=== PATIENT | female | born 1985 | race Caucasian/White ===

== ENCOUNTER → 2018-06-20 07:56 | Outpatient (CLI) | payer OTHER, SELFPAY ==
[2018-06-20 10:40] LABS: HCG Quantitative /Beta subunit 3886.8 mIU/mL
== END ==
PROVIDERS: PCP Obstetrics & Gynecology; Visit Provider Obstetrics & Gynecology
DX: N96 Recurrent pregnancy loss (principal); Z32.01 Encounter for pregnancy test, result positive
CPT/HCPCS: 36415; 84702

== ENCOUNTER → 2018-06-22 08:30 | Outpatient (CLI) | payer OTHER, SELFPAY ==
[2018-06-22 09:59] LABS: HCG Quantitative /Beta subunit 8791.9 mIU/mL
== END ==
PROVIDERS: PCP Obstetrics & Gynecology; Visit Provider Obstetrics & Gynecology
DX: N91.2 Amenorrhea, unspecified (principal); N96 Recurrent pregnancy loss
CPT/HCPCS: 36415; 84702

== ENCOUNTER → 2018-07-27 09:25 | Outpatient (CLI) | payer OTHER, SELFPAY ==
[2018-07-27 11:04] LABS: Add Manual Diff / Slide Review NO; Basophils Absolute Auto 0 /uL (0-100); Basophils Percent Auto 0.3 % (0-2); Eosinophils Absolute Auto 100 /uL (0-450); Eosinophils Percent Auto 1.1 % (2-4); Hematocrit 41.2 % (36-46); Hemoglobin 13.5 g/dL (12.0-16.0); Lymphocytes Absolute Auto 1800 /uL (1100-4500); Lymphocytes Percent Auto 20.2 % (25-40); Mean Corpuscular HGB Conc 32.8 % (30-36); Mean Corpuscular Hemoglobin 29.8 PG (26-34); Mean Corpuscular Volume 90.9 fL (80-100); Monocytes Absolute Auto 500 /uL (0-900); Monocytes Percent Auto 5.9 % (3-14); Neutrophils Absolute Auto 6400 /uL (1500-7000); Neutrophils Percent Auto 72.5 % (50-75); Platelet Count 229 X10^3/uL (150-400); Red Blood Cell Count 4.54 X10^6/uL (4.0-5.2); Red Cell Distribution Width 13.1 % (11.6-14.8); White Blood Cell Count 8.8 X10^3/uL (4.5-11.0)
[2018-07-27 11:09] LABS: Appearance Urine UA CLEAR; Bilirubin Urine UA NEGATIVE (NEGATIVE); Color Urine UA YELLOW; Glucose Urine UA NEGATIVE (Negative); Ketones Urine UA NEGATIVE (NEGATIVE); Leukocyte Esterase Urine UA NEGATIVE (NEGATIVE); Nitrite Urine UA NEGATIVE (Negative); Occult Blood Urine UA NEGATIVE (Negative); Protein Urine UA NEGATIVE (Negative); Specific Gravity Urine UA <=1.005 (1.000-1.035); Urobilinogen Urine UA 0.2 E.U./dL (0.2)
[2018-07-27 11:53] LABS: Hepatitis B Surface Antigen NEGATIVE s/c (NEGATIVE); Rubella Antibody IgG 29.8 IU/mL (>15)
[2018-07-27 12:10] LABS: HIV 1 and 2 Antibody NEGATIVE (NEGATIVE); Hep C Virus Ab w/Reflex Quant NEGATIVE s/c (NEGATIVE)
[2018-07-30 14:13] LABS: RPR Screen Nonreactive (Nonreactive)
[2018-08-03 14:16] LABS: Informaseq SEE SEPARATE REPORTS
== END ==
PROVIDERS: Visit Provider Obstetrics & Gynecology
DX: O09.529 Supervision of elderly multigravida, unspecified trimester (principal); N96 Recurrent pregnancy loss; Z3A.10 10 weeks gestation of pregnancy
CPT/HCPCS: 36415; 80055; 81003; 81507; 86703; 86787; 86803; 86850; 86900; 86901; 87086

== ENCOUNTER → 2018-10-10 08:49 | Outpatient (CLI) | payer OTHER, SELFPAY ==
--- NOTE | 2018-10-10 08:50 | DI.US.S_ITS ---
PROCEDURE: US OB >= 14 WEEKS FETUS INDICATIONS: ANATOMY SCAN OUTSIDE/PRIOR DATING DATA: Last menstrual period (LMP): 05/17/18. LMP-based estimated date of delivery (ERLINDA): 02/21/19. First dating scan (date and location): 07/18/18. Estimated date of delivery (ERLINDA) from first dating scan: 02/22/19. TECHNIQUE: Real-time scanning was performed of the fetus, with image documentation and biometric measurements. Endovaginal scanning: No COMPARISON: [facility], , OB >= 14 WEEKS FETUS, 08/22/2018, 15:38. FINDINGS: General: A single living intrauterine gestation is present. Presentation: Vertex. Placenta: Placental position is posterior, with marginal placenta previa with the inferior edge of the placenta nearly at the level of the internal cervical os. Amniotic fluid index: 16.6 cm, normal range is 5-24 cm. heart rate: 145 beats per minute. Maternal cervical canal: 4.1 cm long. Normal lower limit is 2.5 cm. biometrics: Biparietal diameter: 21 weeks 1 day Head circumference: 21 weeks 2 days Abdominal circumference: 21 weeks 4 days Femur length: 21 weeks 2 days Estimated gestational age from initial scan: 20 weeks 5 days Composite gestational age from present scan: 21 weeks 2 days Estimated weight and percentile: 422 g; 82nd percentile Measurement variability for biometric dating: +/- 7 days from 14 weeks to 15 weeks 6 days gestation, +/- 10 days from 16 weeks to 21 weeks 6 days gestation, +/- 2 weeks from 22 weeks to 27 weeks 6 days gestation, +/- 3 weeks for 28 weeks gestation or later. weight reference: 4500 g or EFW >90/95% is considered macrosomia or large for gestational age. EFW <10% is small for gestational age. EFW 5% or less is considered intra-uterine growth restriction. Anatomic survey: Neuro: Ventricles are non-dilated at less than 10 mm. Cisterna magna is normal at 3-11 mm. Cerebellum is normal in size and morphology. Nuchal skin fold: Normal at less than 6 mm between 14-21 weeks gestational age. Face: Nose and lips, facial profile are normal. Spine: No evidence for spina bifida. Heart: 4-chambered heart is present, with normal ventricular outflow tracts. Diaphragm: Diaphragm is intact. Stomach: Left-sided stomach is present. Kidneys: No hydronephrosis. Normal is less than 5 mm in 2nd trimester, less than 7 mm in 3rd trimester. Cord: 3-vessel cord has orthotopic insertion. Bladder: Normal in size. Extremities: All 4 extremities identified. IMPRESSION: 1. Single living IUP redemonstrated and interval growth is normal. 2. Normal anatomic survey. 3. Marginal placenta previa. Short term followup ultrasound recommended. Dictated by: Torin XIONG Interpreted: Lisa Reeves MD on 10/10/2018 at 12:57 Approved by: Lisa Reeves M.D. on 10/10/2018 at 16:12
== END ==
PROVIDERS: Visit Provider Obstetrics & Gynecology
DX: O44.22 Partial placenta previa NOS or without hemorrhage, second trimester (principal); Z3A.21 21 weeks gestation of pregnancy; Z36.89 Encounter for other specified antenatal screening
CPT/HCPCS: 76811

== ENCOUNTER → 2018-11-29 07:04 | Outpatient (CLI) | payer OTHER, SELFPAY ==
[2018-11-29 08:38] LABS: Hematocrit 32.7 % (36-46); Hemoglobin 11.1 g/dL (12.0-16.0)
[2018-11-29 09:38] LABS: GTT (PREG) 1 Hour PP 50gm Dose 153 mg/dL (76-139)
== END ==
PROVIDERS: PCP Family Medicine; Visit Provider Obstetrics & Gynecology
DX: Z34.82 Encounter for supervision of other normal pregnancy, second trimester (principal); Z3A.27 27 weeks gestation of pregnancy
CPT/HCPCS: 36415; 82950; 85014; 85018

== ENCOUNTER → 2018-11-30 07:04 | Outpatient (CLI) | payer OTHER, SELFPAY ==
[2018-11-30 09:15] LABS: Glucose 1 Hour Gest 153 mg/dL (76-180)
[2018-11-30 09:24] LABS: Glucose Fasting Gestational 77 mg/dL (76-95)
[2018-11-30 10:29] LABS: Glucose Tol Interp,Gestational INTERPRETATION
[2018-11-30 10:34] LABS: Glucose 2 Hour Gest 156 mg/dL (76-155)
[2018-11-30 11:21] LABS: Glucose 3 Hour Gest 96 mg/dL (76-140)
== END ==
PROVIDERS: PCP Family Medicine; Visit Provider Obstetrics & Gynecology
DX: O99.810 Abnormal glucose complicating pregnancy (principal); Z34.82 Encounter for supervision of other normal pregnancy, second trimester; Z3A.27 27 weeks gestation of pregnancy
CPT/HCPCS: 36415; 82951; 82952

== ENCOUNTER 2018-12-16 18:20 | Outpatient (CLI) | payer OTHER, SELFPAY | END 2018-12-16 19:50 | disposition home or self-care (01) | LOC: LABOR 18:38 → OB 12-18 15:03 | PROVIDERS: PCP Family Medicine; Visit Provider Obstetrics & Gynecology | DX: O24.415 Gestational diabetes mellitus in pregnancy, controlled by oral hypoglycemic drugs (principal); O60.03 Preterm labor without delivery, third trimester; O26.23 Pregnancy care for patient with recurrent pregnancy loss, third trimester; O09.523 Supervision of elderly multigravida, third trimester; Z3A.30 30 weeks gestation of pregnancy | CPT/HCPCS: 59025; G0378; G0379 ==

== ENCOUNTER 2019-01-18 14:36 | Outpatient (CLI) | payer OTHER, SELFPAY ==
[2019-01-18 15:30] VITALS: BP 112/75
== END 2019-01-18 15:20 | disposition home or self-care (01) ==
LOC: OB 01-19 10:32
PROVIDERS: PCP Family Medicine; Visit Provider Obstetrics & Gynecology
DX: O09.523 Supervision of elderly multigravida, third trimester (principal); O26.23 Pregnancy care for patient with recurrent pregnancy loss, third trimester; Z3A.35 35 weeks gestation of pregnancy; O26.893 Other specified pregnancy related conditions, third trimester; N89.8 Other specified noninflammatory disorders of vagina
CPT/HCPCS: 59025; 84112; G0378; G0379

== ENCOUNTER → 2019-01-23 15:47 | Outpatient (CLI) | payer OTHER, SELFPAY ==
[2019-01-24 12:41] LABS: Strep Grp B PCR NEG for Grp B Strep
== END ==
PROVIDERS: PCP Family Medicine; Visit Provider Obstetrics & Gynecology
DX: Z34.83 Encounter for supervision of other normal pregnancy, third trimester (principal); Z36.85 Encounter for antenatal screening for Streptococcus B; Z3A.35 35 weeks gestation of pregnancy
CPT/HCPCS: 87653

== ENCOUNTER 2019-02-04 21:00 | Outpatient (CLI) | payer OTHER, SELFPAY | END 2019-02-04 21:37 | disposition home or self-care (01) | LOC: OB 02-06 12:10 | PROVIDERS: PCP Family Medicine; Visit Provider Obstetrics & Gynecology | DX: O36.8190 Decreased fetal movements, unspecified trimester, not applicable or unspecified (principal); O09.523 Supervision of elderly multigravida, third trimester; O26.23 Pregnancy care for patient with recurrent pregnancy loss, third trimester; Z3A.37 37 weeks gestation of pregnancy | CPT/HCPCS: 59025; G0378; G0379 ==

== ENCOUNTER 2019-02-09 08:49 | Outpatient (CLI) | payer OTHER, SELFPAY ==
--- NOTE | 2019-02-09 10:27 | P.TNLD_ITS ---
Visit Information Visit Information Date of evaluation: 02/09/19 Primary OB Provider: Yulisa Bella On-call OB Provider: Jessica Valdez Reason for Evaluation: Yes rule out labor Comments/Additional reasons for admission: This patient is a 33-year-old at 38+1 presenting for evaluation for labor. Patient has history of prior section, and reported painful cramping overnight that has since resolved into occasional back tightening. Patient denies vaginal bleeding, abdominal pain, loss of fluid, decreased movement, or any other concerns or complaints. Patient is status post Lovenox for MTHFR, but has no other complications. Patient vocalized strong desire to wait until scheduled section unless absolutely necessary. 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 Brother No problems noted. Sister No problems noted. Grandfather Cancer Grandfather No problems noted. Grandmother Diabetes mellitus Social History marital status: number of children: 1 household members: spouse Smoking Status: Never smoker alcohol intake: current substance use type: does not use Review of Systems Constitutional Constitutional: Reports system reviewed and no additional complaints, except as documented Cardiovascular Cardiovascular: Reports system reviewed; no additional complaints, except as documented Respiratory Respiratory: Reports system reviewed and no additional complaints, except as documented Gastrointestinal Gastrointestinal: Reports system reviewed and no additional complaints, except as documented Genitourinary Genitourinary: Reports system reviewed and no additional complaints, except as documented Neurologic Neurologic: Reports system reviewed and no additional complaints, except as documented Exam Vital Signs (past 8 hours): 114/56, 105 Evaluation Evaluation Baseline heart rate: 135 Variability: Average (6-10) monitor accelerations: Present monitor decelerations: Absent Contraction Frequency (minutes): 3 Cervical dilation (cm): 0 Cervical effacement (%): 0 station: -4 Diagnosis, Plan/Disposition Plan/Disposition Plan: This patient is having contractions, but reports that they are now asymptomatic. status is otherwise reassuring, and the patient emphatically desires to be discharged home to postpone her section to her scheduled date if at all possible. We discussed antepartum precautions and the importance of returning with regular symptomatic contractions, and the patient vocalized understanding. OB Disposition: home
== END 2019-02-09 10:37 | disposition home or self-care (01) ==
LOC: LABOR 10:07 → OB 11:53
PROVIDERS: PCP Family Medicine; Visit Provider Obstetrics & Gynecology
DX: O99.283 Endocrine, nutritional and metabolic diseases complicating pregnancy, third trimester (principal); Z3A.38 38 weeks gestation of pregnancy
CPT/HCPCS: 59025; G0378; G0379

== ENCOUNTER 2019-02-15 05:48 | Inpatient (IN) | payer OTHER, SELFPAY ==
[2019-02-15] VITALS (8 sets, daily range): BP systolic 89–112; BP diastolic 44–68; PULSE 94–119; RESP 10–17; TEMP 36.1–36.3; O2SAT 99–110
[2019-02-15] MEDS: LACTATED RINGERS 1,000 ML 42 ML IV ×3 (06:00→08:36)
[2019-02-15 07:14] LABS: Add Manual Diff / Slide Review NO; Basophils Absolute Auto 0 /uL (0-100); Basophils Percent Auto 0.3 % (0-2); Eosinophils Absolute Auto 100 /uL (0-450); Hematocrit 37.7 % (36-46); Hemoglobin 12.8 g/dL (12.0-16.0); Lymphocytes Absolute Auto 2200 /uL (1100-4500); Lymphocytes Percent Auto 19.7 % (25-40); Mean Corpuscular HGB Conc 33.8 % (30-36); Mean Corpuscular Hemoglobin 31.1 PG (26-34); Monocytes Absolute Auto 1000 /uL (0-900); Neutrophils Absolute Auto 7700 /uL (1500-7000); Platelet Count 150 X10^3/uL (150-400); Red Cell Distribution Width 15.2 % (11.6-14.8)
--- NOTE | 2019-02-15 07:31 | SUR.OPER ---
Supine on Padded OR bed, head on pillow, safety belt at thigh, arms secured on padded arm boards at <90 degrees abduction. Bump under right buttock. Legs uncrossed with pillow under knees, gel pad to heels, tape over blanket to lower legs.
--- NOTE | 2019-02-15 07:41 | PM.PREOP ---
Pre-operative Note Interval Note History & Physical reviewed/Exam performed by Physician: Yes Changes to H&P: No
[2019-02-15] MEDS: CEFAZOLIN 2 GM/100 ML FROZ.PIGGY IV (07:43)
--- NOTE | 2019-02-15 08:26 | SUR.OPER ---
viable baby boy emerged from placenta at 0826
[2019-02-15] MEDS: ACETAMINOPHEN IV 1,000 MG/100 ML VIAL 400 MG IV (08:35)
--- NOTE | 2019-02-15 08:36 | SUR.OPER ---
placenta and cord blood sent with ob rn
[2019-02-15] MEDS: BUPIVACAINE 0.5% W/ EPI (PF) 30 ML VIAL INJ (08:46)
--- NOTE | 2019-02-15 09:16 | PM.GYNOP.1 ---
Operative Date/Time/Diagnoses Date of procedure: 02/15/19 Time of procedure: 09:16 Pre-op diagnosis: Previous section Thirty-nine weeks gestation MTHFR Post-op diagnosis: same Procedure & Clinicians Procedure: Procedures Operation Date: 02/15/19 07:45 Actual Procedures Side Surgeon p Repeat Section Yulisa Bella MD Indications: Thirty-nine weeks gestation Previous section MTHFR Surgeon: Yulisa Bella Vice President Investor Relations: Bernadette Mahoney Anesthesia Type: Spinal (With Duramorph) Operative Notes Findings: A live male infant in the left occiput anterior presentation Very thin lower uterine segment Normal tubes and ovaries Closure Type: primary Specimen(s): other (Cord bloods, placenta) Applied: catheter Estimated blood loss (mL): 400 Blood products transfused: none Procedure in detail: The patient was taken to the operating room where she was placed in the seated position. Spinal anesthesia with Duramorph was administered. The patient was then placed in the dorsal supine position with a leftward tilt. She was prepped and draped in the usual sterile fashion. A timeout was performed. After spinal analgesia was found to be adequate, the previous incision was excised in an elliptical fashion, and carried down to the underlying layer of fascia. The fascia was nicked in the midline, and the incision extended bilaterally with the Foster scissors. The superior aspect of the fascial incision was grasped with a [place] clamps, elevated, and the underlying rectus muscles dissected off sharply and bluntly. Attention was then turned to the inferior aspect of this incision which in a similar fashion was grasped with a Dottie clamps, elevated, and the underlying rectus muscles dissected off sharply and bluntly. The rectus muscles were in the midline. The peritoneum was identified, grasped between 2 hemostats, and entered sharply with the Metzenbaum scissors. This incision was extended superiorly and inferiorly with good visualization of the bladder. The bladder blade was inserted. The lower uterine segment was found to be very thin. The vesicouterine peritoneum was identified, grasped with the pickup, and entered sharply with the Metzenbaum scissors. This incision was extended bilaterally, and the bladder flap was created digitally. The bladder blade was reinserted. The lower uterine segment was incised in a transverse fashion with the scalpel. Upon entering the amniotic sac there was moderate amount of clear amniotic fluid. The 's head was delivered with vacuum assistance. The nose and mouth were suctioned with bulb suction. The remainder of the body delivered without difficulty. The cord was double clamped and cut. The infant was handed off to waiting RN and RT. The placenta was delivered manually. The uterus was cleared of all clots and debris. The uterine incision was repaired with #1 chromic in a running interlocking fashion, and a second layer the same suture was used for an imbricating layer. Hemostasis was achieved. The tubes and ovaries were examined and were found to be normal. The gutters were cleared of all clots and debris. The parietal peritoneum was closed using 2-0 Vicryl in a running fashion. The fascia was reapproximated using 0 Vicryl in a running fashion. The subcutaneous layer was copiously irrigated with warm normal saline. 5 simple interrupted sutures of 3-0 Vicryl were placed to reapproximate the subcutaneous layer. The skin was closed with 4-0 Biosyn in a subcuticular fashion. Steri-Strips were placed. An Aquacell dressing was placed. The uterus was expressed of a small amount of old blood. Sponge, lap, and instrument counts were correct x-2. The patient tolerated the procedure well, and was taken to PACU in stable condition. Complications: none Post-operative Condition: stable Disposition: PACU Plan for aftercare: To the center after recovery
--- NOTE | 2019-02-15 09:55 | SUR.PHASEI ---
Patient taken to room in stable condition. Alert and awake. Family at bedside. Reported off to receiving RN Derrick. No change in condtion.
[2019-02-15] MEDS: ONDANSETRON 4 MG/2 ML INJ IV ×2 (13:31→19:36)
[2019-02-15] MEDS: KETOROLAC 30 MG/ML VIAL IV ×2 (15:05→21:08)
[2019-02-15] MEDS: diphenhydrAMINE 50 MG/ML VIAL 25 MG IV (19:50)
[2019-02-16] MEDS: KETOROLAC 30 MG/ML VIAL IV (03:06)
[2019-02-16 06:40] LABS: Hematocrit 34.7 % (36-46); Hemoglobin 11.6 g/dL (12.0-16.0)
[2019-02-16] MEDS: DOCUSATE 250 MG CAPSULE PO (08:48)
[2019-02-16] MEDS: IBUPROFEN 600 MG TABLET PO ×3 (08:48→21:58)
[2019-02-16] MEDS: LANOLIN OINT 7 GM 1 APPLIC TOP (08:49)
[2019-02-16] MEDS: PRENATAL VIT,CALC/IRON/FOLIC 1 TABLET 1 TAB PO (08:49)
[2019-02-16] MEDS: ACETAMINOPHEN 325 MG TABLET 650 MG PO ×2 (11:54→19:12)
[2019-02-16 15:00] VITALS: BP 131/79; PULSE 100; RESP 16; TEMP 36.7
[2019-02-16] MEDS: HYDROCODONE/ACET 5/325 TABLET 1 TAB PO (23:24)
[2019-02-16] MEDS: MAG HYDROX/ALUM/SIMETH 30 ML UDC PO (23:46)
[2019-02-17] MEDS: ACETAMINOPHEN 325 MG TABLET 650 MG PO ×2 (04:07→09:54)
[2019-02-17] MEDS: IBUPROFEN 600 MG TABLET PO (06:22)
[2019-02-17] MEDS: MAG HYDROX/ALUM/SIMETH 30 ML UDC PO (06:22)
--- NOTE | 2019-03-06 15:32 | PM.OBPN.1 ---
Subjective - OB Subjective Patient comments: no complaints, pain well controlled and tolerating diet baby status: doing well and nursing well feeding status: exclusively breast feeding Date Patient Seen: 02/16/19 Time Patient Seen: 08:30 Exam Vital Signs (past 8 hours): Oxygen Delivery Method Room Air Narrative Exam Narrative: Generally: Patient is sitting up in bed, holding , no acute distress Lungs: Clear to auscultation bilaterally Cardiovascular: Regular rate and rhythm Abdomen: Soft and flat. Good bowel sounds Fundus: Firm at U -1 Extremities: Negative Homans, no edema Objective Labs Result Diagrams: 02/16/19 06:20 Assessment & Plan Plan day: 1 plan OB: routine postop care Time Spent With Patient Time: Total time spent is greater than 50% in coordination of care (as documented) at patient's floor/unit and/or counseling patient: Time with patient: 15-24 minutes
--- NOTE | 2019-03-06 15:33 | PM.OBDS.1 ---
Discharge Providers Provider Date of admission: 02/15/19 05:48 Discharge Date: 02/17/19 Primary care physician: Bernadette Mahoney DO Consults: 02/15/19 09:05 Consult to Recreation Facility Attendant Routine Comment: Discharge provider: Yulisa Bella MD Summary Hospital Course Date Patient Seen: 02/17/19 Time Patient Seen: 11:00 Procedures: Spinal anesthesia Repeat low-transverse section Hospital Course: Patient is a 33-year-old who presented on February 15, 2019 for scheduled repeat low-transverse section. She underwent this without complication. Her postoperative course was unremarkable. She was discharged home on postop day # 2. Peripartum Data Infant Delivery Method: Section Laceration description: None Episiotomy description: None Procedures: Spinal anesthesia Repeat low-transverse section complications: none Status at Discharge Cognitive/behavioral status at discharge: oriented Functional status at discharge: independent ambulation Overall status at discharge: patient is progressing back to baseline Time Spent with Patient Time attestation: Total time spent providing and/or coordinating discharge services: Time spent: Less than 30 minutes Objective Labs Result Diagrams: 02/16/19 06:20 Exam Vital Signs (past 8 hours): Oxygen Delivery Method Room Air Narrative Exam Narrative: Generally: Patient walking around in room, no acute distress Lungs: Clear to auscultation bilaterally Cardiovascular: Regular rate and rhythm Fundus: Firm at U -2 Incision: Clean dry and intact with Aquacel dressing Extremities: Trace edema, negative Homans Discharge Plan Discharge Plan Patient Disposition: Home Discharge comment: Call with fever, chills, redness or drainage around incision or bleeding vaginally more than a pad in an hour Discharge orders & Medications Prescriptions: Continued fenugreek PO RF: 0 docusate sodium 50 mg capsule 50 mg PO DAILY RF: 0 Discontinued sertraline [Zoloft] 50 mg tablet 50 mg PO QDAY Qty: 30 RF: 6 metoclopramide HCl [Reglan] 10 mg tablet 10 mg PO TID Qty: 90 RF: 1 progesterone micronized 100 mg capsule 100 mg PO DAILY Qty: 10 RF: 0 folic acid 1 mg tablet 4 mg PO DAILY Qty: 120 RF: 3 metformin [Glucophage] 500 mg tablet 500 mg PO QDAY Qty: 90 RF: 3 enoxaparin [Lovenox] 40 mg/0.4 mL syringe 40 mg SUBCUT DAILY Qty: 12 RF: 6 Follow up/Referrals: Yulisa Bella MD [Physician] - 1 Week (Please make an appointment on Tuesday for 1 week,incision check) Bernadette Mahoney DO [Primary Care Provider] - Diet/Activity/Treatments Diet: Regular Skin/Wound/Dressing Care Report to your healthcare provider any signs of infection, such as:: chills, fever, increased pain, unusual drainage and unusual redness Dressing: Do not remove Visit Report/Discharge Packet Instructions: DI for Discharge Data Primary Care Provider: Bernadette Mahoney Discharges patient from system. Discharge Date/Time: 02/17/19 11:20
== END 2019-02-17 11:20 | disposition home or self-care (01) | DRG 788 ==
LOC: AC 05:57 → LABOR 06:10
PROVIDERS: Admitting Provider Obstetrics & Gynecology; PCP Family Medicine; Visit Provider Obstetrics & Gynecology
PROC: 10D00Z1 Extraction of Products of Conception, Low, Open Approach (ICD-10-PCS; CPT 59514; principal; 2019-02-15 07:45)
DX: O34.211 Maternal care for low transverse scar from previous cesarean delivery (principal); Z3A.39 39 weeks gestation of pregnancy; Z37.0 Single live birth
CPT/HCPCS: 36415; 59050; 59510; 59514; 85014; 85018; 85025; 86850; 86900; 86901; J0131; J0690; J1200; J1885; J2175; J2405; J2590

== ENCOUNTER → 2019-10-23 15:40 | Outpatient (CLI) | payer OTHER, SELFPAY ==
--- NOTE | 2019-10-23 15:41 | DI.MRI.S_ITS ---
PROCEDURE: MR HEAD/BRAIN WO CON INDICATIONS: headaches, dizziness, fam hx of brain tumor TECHNIQUE: Noncontrast axial T1 spin echo, axial T2 fast spin echo, sagittal and axial FLAIR, coronal T2 fast spin echo, axial gradient echo, axial diffusion and ADC through the brain. COMPARISON: None. FINDINGS: Image quality: Excellent. CSF Spaces: Basal cisterns are patent. No extra-axial fluid collections. Ventricles are normal in size and shape. Brain: No intracranial masses or hemorrhage. Mcfadden/white matter interface is normal. Brainstem appears normal. Diffusion-weighted images demonstrate no acute ischemic insult. No chronic ischemic insults. Normal intravascular flow voids are present. Skull and face: Calvarium has normal marrow signal. Orbits appear normal. Sinuses: Sinuses and mastoids are clear. IMPRESSION: 1. No explanation for headache. 2. No acute process. No recent infarct. Dictated by: Lisa Reeves M.D. on 10/23/2019 at 16:40 Approved by: Lisa Reeves M.D. on 10/23/2019 at 16:41
== END ==
PROVIDERS: PCP Family Medicine; Referring Provider Family Medicine; Visit Provider Family Medicine
DX: R42 Dizziness and giddiness (principal); R51 Headache
CPT/HCPCS: 70551

== ENCOUNTER → 2020-10-15 06:57 | Outpatient (CLI) | payer OTHER, SELFPAY ==
[2020-10-15 08:14] LABS: Add Manual Diff / Slide Review NO; Basophils Absolute Auto 0 /uL (0-100); Basophils Percent Auto 0.7 % (0-2); Eosinophils Absolute Auto 100 /uL (0-450); Eosinophils Percent Auto 2.2 % (2-4); Hematocrit 40.4 % (36-46); Hemoglobin 13.3 g/dL (12.0-16.0); Lymphocytes Absolute Auto 2500 /uL (1100-4500); Lymphocytes Percent Auto 44.2 % (25-40); Mean Corpuscular HGB Conc 32.8 % (30-36); Mean Corpuscular Hemoglobin 30.2 PG (26-34); Mean Corpuscular Volume 92.2 fL (80-100); Monocytes Absolute Auto 300 /uL (0-900); Neutrophils Absolute Auto 2700 /uL (1500-7000); Neutrophils Percent Auto 46.9 % (50-75); Platelet Count 188 X10^3/uL (150-400); Red Blood Cell Count 4.38 X10^6/uL (4.0-5.2); Red Cell Distribution Width 12.5 % (11.6-14.8); White Blood Cell Count 5.7 X10^3/uL (4.5-11.0)
[2020-10-15 08:32] LABS: Alanine Aminotransferase 22 IU/L (<35); Albumin Globulin Ratio 1.3 (1.0-2.8); Alkaline Phosphatase 46 U/L (38-126); Aspartate Aminotransferase 45 IU/L (14-36); BUN Creatinine Ratio 24.1 (6-22); Bilirubin Total 0.3 mg/dL (0.2-1.3); Blood Urea Nitrogen 19 mg/dL (7-17); Calcium 9.5 mg/dL (8.4-10.2); Carbon Dioxide 26 mmol/L (22-32); Chloride 107 mmol/L (98-107); Cholesterol 182 mg/dL (140-199); Estimated Glomerular Filt Rate > 60.0 mL/min (>60); Glucose 90 mg/dL (70-100); HDL Cholesterol 61 mg/dL (40-60); HEMOLYSIS < 15 (0-50); LDL Cholesterol Calculated 98 mg/dL (<100); Sodium 139 mmol/L (137-145); Triglycerides 116 mg/dL (35-150)
[2020-10-15 09:09] LABS: TSH w/ Reflex to FT4 2.25 uIU/mL (0.47-4.68)
== END ==
PROVIDERS: PCP Family Medicine; Referring Provider Family Medicine; Visit Provider Family Medicine
DX: R53.83 Other fatigue (principal); R07.89 Other chest pain
CPT/HCPCS: 36415; 80053; 80061; 84443; 85025

== ENCOUNTER → 2020-12-10 13:46 | Outpatient (CLI) | payer OTHER, SELFPAY ==
[2020-12-10 14:26] LABS: Alanine Aminotransferase 18 IU/L (<35); Albumin 4.1 g/dL (3.5-5.0); Albumin Globulin Ratio 1.6 (1.0-2.8); Alkaline Phosphatase 41 U/L (38-126); Aspartate Aminotransferase 21 IU/L (14-36); BUN Creatinine Ratio 26.8 (6-22); Bilirubin Total 0.2 mg/dL (0.2-1.3); Blood Urea Nitrogen 19 mg/dL (7-17); Calcium 9.2 mg/dL (8.4-10.2); Carbon Dioxide 26 mmol/L (22-32); Chloride 104 mmol/L (98-107); Estimated Glomerular Filt Rate > 60.0 mL/min (>60); Globulin 2.5 g/dL (1.7-4.1); Glucose 97 mg/dL (70-100); HEMOLYSIS < 15 (0-50); Sodium 136 mmol/L (137-145); Total Protein 6.6 g/dL (6.3-8.2)
== END ==
PROVIDERS: PCP Family Medicine; Referring Provider Family Medicine; Visit Provider Family Medicine
DX: R74.01 Elevation of levels of liver transaminase levels (principal)
CPT/HCPCS: 36415; 80053

== ENCOUNTER → 2021-06-17 13:26 | Outpatient (CLI) | payer OTHER, SELFPAY ==
[2021-06-17 14:01] LABS: Add Manual Diff / Slide Review NO; Basophils Absolute Auto 0 /uL (0-100); Basophils Percent Auto 0.4 % (0-2); Eosinophils Absolute Auto 100 /uL (0-450); Eosinophils Percent Auto 1.5 % (2-4); Hemoglobin 13.4 g/dL (12.0-16.0); Lymphocytes Absolute Auto 2300 /uL (1100-4500); Lymphocytes Percent Auto 26.3 % (25-40); Mean Corpuscular HGB Conc 33.6 % (30-36); Mean Corpuscular Hemoglobin 30.8 PG (26-34); Mean Corpuscular Volume 91.6 fL (80-100); Monocytes Absolute Auto 500 /uL (0-900); Monocytes Percent Auto 5.4 % (3-14); Neutrophils Absolute Auto 5900 /uL (1500-7000); Neutrophils Percent Auto 66.4 % (50-75); Platelet Count 192 X10^3/uL (150-400); Red Blood Cell Count 4.36 X10^6/uL (4.0-5.2); Red Cell Distribution Width 13.1 % (11.6-14.8); White Blood Cell Count 8.9 X10^3/uL (4.5-11.0)
[2021-06-17 14:18] LABS: Alanine Aminotransferase 22 IU/L (<35); Albumin 4.7 g/dL (3.5-5.0); Albumin Globulin Ratio 1.7 (1.0-2.8); Alkaline Phosphatase 49 U/L (38-126); Aspartate Aminotransferase 27 IU/L (14-36); BUN Creatinine Ratio 24.7 (6-22); Bilirubin Total 0.3 mg/dL (0.2-1.3); Blood Urea Nitrogen 20 mg/dL (7-17); Calcium 9.2 mg/dL (8.4-10.2); Carbon Dioxide 28 mmol/L (22-32); Chloride 102 mmol/L (98-107); Estimated Glomerular Filt Rate > 60 mL/min (>60); Globulin 2.8 g/dL (1.7-4.1); Glucose 95 mg/dL (70-100); HEMOLYSIS < 15 (0-50); Potassium 3.9 mmol/L (3.4-5.1); Sodium 137 mmol/L (137-145); Total Protein 7.5 g/dL (6.3-8.2)
[2021-06-17 14:55] LABS: Ferritin 31 ng/mL (6-137)
[2021-06-17 15:26] LABS: Folate > 20.0 ng/mL (2.76-20.0); Vitamin B12 515 pg/mL (239-931)
[2021-06-17 15:41] LABS: Iron 97 ug/dL (37-170)
[2021-06-17 15:50] LABS: Percent Iron Saturation 29 % (15-50); Total Iron Binding Capacity 329 ug/dL (265-497)
[2021-06-17 15:56] LABS: T4 Total Thyroxine 7.76 ug/dL (5.5-11.0)
[2021-06-17 16:44] LABS: Thyroid Stimulating Hormone 0.738 uIU/mL (0.47-4.68)
[2021-06-19 14:50] LABS: ANA Screen, IFA Negative (.)
== END ==
PROVIDERS: PCP Family Medicine; Referring Provider Dermatology; Visit Provider Dermatology
DX: L65.0 Telogen effluvium (principal)
CPT/HCPCS: 36415; 80053; 82607; 82728; 82746; 83540; 83550; 84436; 84443; 85025; 86038

== ENCOUNTER → 2022-07-12 11:00 | Outpatient (CLI) | payer OTHER, SELFPAY ==
[2022-07-12 12:26] LABS: Free T4, Direct Thyroxine 1.14 ng/dL (0.78-2.19)
[2022-07-12 12:40] LABS: Thyroid Stimulating Hormone 0.643 uIU/mL (0.47-4.68)
[2022-07-13 20:01] LABS: Estradiol, Total 79.2 pg/mL
[2022-07-19 16:20] LABS: Percent Free Testosterone 0.99 % (0.50-2.80); Testosterone Total 19.8 ng/dL (10.0-55.0)
== END ==
PROVIDERS: PCP Family Medicine; Referring Provider Obstetrics & Gynecology; Visit Provider Obstetrics & Gynecology
DX: L65.9 Nonscarring hair loss, unspecified (principal)
CPT/HCPCS: 36415; 82670; 84402; 84403; 84439; 84443

== ENCOUNTER → 2022-08-19 15:48 | Outpatient (CLI) | payer OTHER, SELFPAY ==
--- NOTE | 2022-08-19 | DI.RAD.S_ITS ---
PROCEDURE: XR LUMBAR SPINE MIN 4V INDICATIONS: low back pain TECHNIQUE: 5 views of the lumbar spine acquired, including flexion and extension views. COMPARISON: None. FINDINGS: Bones: 5 nonrib-bearing vertebrae are present. There is normal bony alignment. No vertebral body compression fractures. No suspicious bony lesions. Soft tissues: Overlying bowel gas pattern is normal. No suspicious soft tissue calcifications. Flexion/extension: There is normal range of motion, with preserved normal alignment. IMPRESSION: Unremarkable study with flexion and extension. Dictated by: Sal Anne M.D. on 08/19/2022 at 17:39 Approved by: Sal Anne M.D. on 08/19/2022 at 17:39
== END ==
PROVIDERS: PCP Family Medicine; Referring Provider Orthopaedic Surgery Orthopaedic Surgery of the Spine; Visit Provider Orthopaedic Surgery Orthopaedic Surgery of the Spine
DX: M54.50 Low back pain, unspecified (principal)
CPT/HCPCS: 72110

== ENCOUNTER → 2022-12-21 12:12 | Outpatient (CLI) | payer OTHER, SELFPAY ==
--- NOTE | 2022-12-21 12:12 | DI.US.S_ITS ---
PROCEDURE: US PELVIC COMPLETE INDICATIONS: IRREGULAR BLEEDING TECHNIQUE: Real-time scanning was performed of the pelvic organs, with image documentation. Additional endovaginal scanning was necessary due to incomplete visualization of the adnexal and endometrial structures by transabdominal scanning. COMPARISON: [facility], US, US PELVIC COMPLETE, 07/04/2018, 11:38. FINDINGS: Uterus: Uterus is retroverted and normal in size at 6.6 x 4.1 x 4.9 cm. The myometrium is homogeneous. The endometrium measures 10 mm combined thickness. Ovaries: The right ovary measures 3.4 x 2.2 x 1.7 cm, with a calculated ovarian volume of 6.6 cc. The left ovary measures 2.6 x 1.2 x 1.5 cm, with a calculated ovarian volume of 2.3 cc. The ovaries have a normal sonographic appearance. Less than 12 follicles can be seen in each ovary. No adnexal masses are seen. Other: No pathologic free abdominal or pelvic fluid. IMPRESSION: Unremarkable exam. We strive to produce accurate, complete, and clear reports of imaging services. To assist us in improving patient care, this report was composed using standard report templates and voice recognition software. Therefore, it may contain abnormal punctuation, insertions and/or omissions. Occasional wrong-word or sound-alike substitutions may occur. Though we review the report and make efforts to correct it, we do recommend that the report be read carefully in proper context to recognize any text inaccuracies. Dictated by: Brianne Reaves M.D. on 12/21/2022 at 15:33 Approved by: Brianne Reaves M.D. on 12/21/2022 at 15:34
== END ==
PROVIDERS: PCP Family Medicine; Referring Provider Obstetrics & Gynecology; Visit Provider Obstetrics & Gynecology
DX: N92.6 Irregular menstruation, unspecified (principal)
CPT/HCPCS: 76830; 76856; 93976

== ENCOUNTER → 2024-04-05 12:42 | Outpatient (CLI) | payer OTHER, SELFPAY ==
--- NOTE | 2024-04-05 12:45 | DI.RAD.S_ITS ---
PROCEDURE: XR CHEST 2V INDICATIONS: COUGH TECHNIQUE: 2 views of the chest were acquired. COMPARISON: None. FINDINGS: Heart, mediastinum and pulmonary vascular: Heart is normal in size and configuration. Mediastinum is unremarkable. Pulmonary vascular is normal. Lungs: Clear Pleural spaces: Normal-no effusions or pneumothorax. Bones and soft tissues: Normal IMPRESSION: Normal chest. Dictated by: Kane Christie M.D. on 04/06/2024 at 12:46 Approved by: Kane Christie M.D. on 04/06/2024 at 12:46
== END ==
PROVIDERS: PCP Family Medicine; Referring Provider Family Medicine; Visit Provider Family Medicine
DX: R05.9 Cough, unspecified (principal)
CPT/HCPCS: 71046